=== PATIENT | male | born 1965 | race Caucasian/White ===

== ENCOUNTER 2018-12-15 00:36 | Emergency (ER) | payer MEDICAID ==
[~2018-12-15] VITALS: Ht 177.8 cm; Wt 95.7 kg
[2018-12-15 00:46] VITALS: Ht 177.8 cm; Wt 95.7 kg
[2018-12-15 02:19] LABS: AMPHETAMINE QUAL UR POSITIVE (See below)
[2018-12-15 05:01] VITALS: BP 134/74
== END 2018-12-15 04:49 | disposition home or self-care (01) ==
LOC: ED 00:36
PROVIDERS: Emergency Medicine
DX: R07.89 Other chest pain (principal); F17.210 Nicotine dependence, cigarettes, uncomplicated; I10 Essential (primary) hypertension; F32.9 Major depressive disorder, single episode, unspecified; W01.0XXA Fall on same level from slipping, tripping and stumbling without subsequent striking against object, initial encounter; Y93.89 Activity, other specified; Y92.89 Other specified places as the place of occurrence of the external cause; Y99.8 Other external cause status
CPT/HCPCS: J1885; Q0092